=== PATIENT | male | born 1970 | race Caucasian/White ===

== ENCOUNTER → 2020-08-07 | Outpatient (CLI) | payer OTHER ==
[2020-08-07 10:30] LABS: BLOOD UREA NITROGEN 17 MG/DL (7-18); CALCIUM LEVEL 9.4 MG/DL (8.5-10.1); CARBON DIOXIDE LEVEL 31 MEQ/L (21-32); CHLORIDE LEVEL 106 MEQ/L (98-107); CHOLESTEROL LEVEL 247 MG/DL (<200); CHOLESTEROL RISK RATIO 4.574 (<5); CREATININE FOR GFR 0.92 MG/DL (0.70-1.30); GLOMERULAR FILTRATION RATE > 60.0 (>56); GLUCOSE, FASTING 98 MG/DL (70-100); HDL CHOLESTEROL 54 MG/DL (>40); LDL CHOLESTEROL 170 MG/DL (<100); NON-HDL-C 193 MG/DL; POTASSIUM SERUM 4.2 MEQ/L (3.5-5.1); SODIUM LEVEL 142 MEQ/L (136-145); TRIGLYCERIDES LEVEL 116 MG/DL (<150)
== END ==
LOC: M LAB 09:33
PROVIDERS: ATTEND Physician Assistant Medical
DX: E78.2 Mixed hyperlipidemia (principal)

== ENCOUNTER 2020-09-19 18:33 | Inpatient (IN) | payer OTHER ==
[~2020-09-19] VITALS: Ht 182.9 cm; Wt 114.5 kg
[2020-09-19] MEDS ORDERED: DICY10CA13 (18:47)
[2020-09-19] MEDS ORDERED: DICL75TA (18:47)
[2020-09-19] MEDS ORDERED: NS 1,000 ML IV ONE (19:30)
[2020-09-19] MEDS ORDERED: KETOROLAC 30 MG/ML 1ML VIAL IV ONE (19:30)
[2020-09-19 20:02] LABS: BASO # 0.1 10^3/uL (0.0-0.2); BASO % 0.5 % (0.0-1.0); EOS # 0.1 10^3/uL (0.0-0.5); EOS % 0.4 % (0.0-3.0); HEMATOCRIT 44.6 % (42.0-52.0); HEMOGLOBIN 15.1 g/dl (13.5-17.5); LYMPH # 0.9 10^3/uL (1.5-5.0); LYMPH % 7.2 % (24.0-44.0); MEAN CORPUSCULAR HEMOGLOBIN 30.6 pg (27.0-33.0); MEAN CORPUSCULAR HGB CONC 33.9 g/dl (32.0-36.5); MEAN CORPUSCULAR VOLUME 90.5 fl (80.0-96.0); MONO # 1.2 10^3/uL (0.0-0.8); MONO % 9.7 % (2.0-8.0); NEUTROPHILS % 81.3 % (36.0-66.0); PLATELET COUNT, AUTOMATED 377 10^3/uL (150-450); RED BLOOD COUNT 4.93 10^6/uL (4.30-6.10); WHITE BLOOD COUNT 12.3 10^3/uL (4.0-10.0)
[2020-09-19 20:35] LABS: ALBUMIN 3.5 GM/DL (3.2-5.2); ALT/SGPT 216 U/L (12-78); BILIRUBIN,DIRECT 1.8 MG/DL (0.0-0.2); BILIRUBIN,TOTAL 2.9 MG/DL (0.2-1.0); CK-MB VALUE MASS 1.3 NG/ML (<3.6); CPK CREATINE PHOSPHOKINASE 276 U/L (39-308); LIPASE 221 U/L (73-393); MB/CK RELATIVE INDEX 0.47 (< OR =4); TOTAL PROTEIN 7.4 GM/DL (6.4-8.2); TROPONIN I < 0.02 NG/ML (< 0.10)
--- NOTE | 2020-09-19 20:39 | REPVR ---
PROCEDURE INFORMATION: Exam: US Abdomen, Limited; Right Upper Quadrant Exam date and time: 09/19/2020 8:23 PM Age: 50 years old Clinical indication: Abdominal pain; Acute; Additional info: Ruq/flank pain TECHNIQUE: Imaging protocol: US abdomen. Real time ultrasound with image documentation. Limited exam focused on the right upper quadrant. COMPARISON: No relevant prior studies available. FINDINGS: Liver: The liver is diffusely echogenic relative to the right kidney, findings consistent with steatosis. Gallbladder: There is mild thickening of the gallbladder wall associated with pericholecystic fluid. No calculi demonstrated. Positive sonographic Steward sign. Possibility of acalculous versus calculus cholecystitis to be considered. Common bile duct: The common bile duct measures 5 mm. No mass or choledocholithiasis. Pancreas: Visualized pancreas is unremarkable. Right kidney: Right kidney measures 13.7 x 6.3 x 7.5 cm. IMPRESSION: 1. Hepatic steatosis. 2. Possible calculus or acalculous cholecystitis as described above. Electronically signed by: Jaime Bañuelos On 09/19/2020 20:39:18 PM
--- NOTE | 2020-09-19 20:52 | REPVR ---
PROCEDURE INFORMATION: Exam: XR Right Ribs with PA Chest Exam date and time: 09/19/2020 8:44 PM Age: 50 years old Clinical indication: Chest wall pain; Right; Patient HX: Lower rib anteriorly; Additional info: Rib tenderness right TECHNIQUE: Imaging protocol: XR Right ribs with PA chest. Views: 3 views COMPARISON: No relevant prior studies available. FINDINGS: Lungs: Unremarkable. No consolidation. Pleural spaces: Unremarkable. No pleural effusion. No pneumothorax. Heart/Mediastinum: Unremarkable. No cardiomegaly. Bones/joints: Unremarkable. IMPRESSION: No acute findings. Electronically signed by: Jaime Bañuelos On 09/19/2020 20:52:25 PM
[2020-09-19] MEDS ORDERED: PIPERACILLIN/TAZOBACTAM SOD 3.375 GM in D5W MINI-BAG PLUS 50 ML IV ONE (21:15)
[2020-09-19] MEDS ORDERED: ACETAMINOPHEN TAB 650MG DOSE (2X325MG) PO PRN (21:35)
[2020-09-19] MEDS ORDERED: MAALOX 30 ML SUSP *UDC PO PRN (21:35)
[2020-09-19] MEDS ORDERED: MOM 30ML SUSPENSION UDC PO PRN (21:35)
--- NOTE | 2020-09-19 21:37 | HPEPDOC ---
[facility] Medical History & Physical Date of Admission Sep 19, 2020 Date of Service: Sep 19, 2020 History and Physical CHIEF COMPLAINT: RUQ abdominal pain HISTORY OF PRESENT ILLNESS: 50 yo M presented to [facility] ER with a week long history of RUQ pain associated with nausea and vomiting, as well as darkening urine. Patient states he was seen at an urgent care in [place], given Bentyl and diclofenac for stomach pain. He has been having RUQ discomfort on and off for ~3 months, with recent exacebration 1 week ago. He reports that his pain worsening on eating fatty foods. He denies fevers, chills, chest pain, shortness of breath. O n arrival to ER, found to have WBC 12.3. Hgb 15.1. T bili 2.9. D bili 1.8. 245. ALT 216. ALP 354. Lipase 221. Elevated D dimer 3900. Gallbladder US showing findings c/w cholecystitis. MRCP showed normal caliber of intra and extrahepatic biliary tree, no choledocholithiasis, findings suggestive of cholecystitis. Patient will be admitted hospitalist service. Dr. Willis was consulted from ER. Patient started on empiric zosyn. PAST MEDICAL HISTORY: obesity sleep apnea kidney stones hiatal hernia vasectomy L knee arthroscopy SOCIAL HISTORY: Patient denies smoking Patient denies etoh use Patient denies illicit drug use FAMILY HISTORY: Reviewed with patient, did not report relevant family history ALLERGIES: Please see below. REVIEW OF SYSTEMS: 10 point review of systems was conducted, pertinent findings are noted in HPI HOME MEDICATIONS: Please see below. PHYSICAL EXAMINATION: VITAL SIGNS: please see below General: NAD, comfortable HEENT: PERRLA, EOMI, sclerae clear Neck: supple, normal ROM, no JVD Respiratory: lungs CTAB, no wheeze, no rales, no crackles CVS: RRR, normal S1, S2, no murmurs Abdo: soft, no masses, no hepatosplenomegaly, positive Steward sign. Diffuse tenderness to palpation, 7 out of 10 Extremities: no edema, pulses 2+ MSK: no joint deformities, normal ROM Neuro: no focal neuro deficits, moving all 4 extremities, CN2-12 intact. Strength 5/5 in all 4 extremities. No nystagmus. Psych: calm, cooperative, AAO x 3 LABORATORY DATA: See below. IMAGING: MRCP (09/19/20): 1. Diffuse thickening of the gallbladder wall. No gallstones demonstrated. Clinical correlation to exclude cholecystitis suggested. 2. Normal caliber of the intra and extrahepatic biliary tree. No evidence of choledocholithiasis. Gallbladder US (09/19/20): FINDINGS: Liver: The liver is diffusely echogenic relative to the right kidney, findings consistent with steatosis. Gallbladder: There is mild thickening of the gallbladder wall associated with pericholecystic fluid. No calculi demonstrated. Positive sonographic Steward sign. Possibility of acalculous versus calculus cholecystitis to be considered. Common bile duct: The common bile duct measures 5 mm. No mass or choledocholithiasis. Pancreas: Visualized pancreas is unremarkable. Right kidney: Right kidney measures 13.7 x 6.3 x 7.5 cm. IMPRESSION: 1. Hepatic steatosis. 2. Possible calculus or acalculous cholecystitis as described above. Ribs XR (09/19/20): No acute findings. MICROBIOLOGY: Please see below. ASSESSMENT: 50 yo M presenting with a week long hx of RUQ abdominal pain with nausea and vomiting possibly 2/2 acute cholecystitis. . PLAN: RUQ pain possibly 2/2 acute cholecystitis - WBC 12.3, with neutrophil predominance - trend CMP given transaminitis - empiric zosyn in ER. Blood cultures were ordered subsequent to abx. - Gallbladder US showing findings c/w acute cholecystitis - MRCP shows no choledocholithiasis or CBD dilation - General surgery Dr. Willis consulted from ER - possible consideration for ERCP in AM with GI service - patient will be kept NPO overnight - LR at 125 cc/hr for maintenance - zofran for nausea - morphine IV for breakthrough, norco. - bowel regimen Elevated D dimer - suspect in setting of acute cholecystitis - no suspicion for PE/DVT at this time - patient is saturating 96% on RA, is normotensive. Denies cough, SOB, hemoptysis. Obesity - BMI 34.2. - complicating care DVT ppx: lovenox. SCDs. TEDs. Dispo: pending clinical improvement. Vital Signs Vital Signs Date Time Temp Pulse Resp B/P (MAP) Pulse Ox O2 Delivery O2 Flow Rate FiO2 09/19/20 19:00 09/19/20 18:43 98.5 105 22 96 Room Air Laboratory Data Labs 24H Laboratory Tests 2 09/19/20 19:39: Immature Granulocyte % (Auto) 0.9, Neutrophils (%) (Auto) 81.3H, Lymphocytes (%) (Auto) 7.2L, Monocytes (%) (Auto) 9.7H, Eosinophils (%) (Auto) 0.4, Basophils (%) (Auto) 0.5, Neutrophils # (Auto) 10.0H, Lymphocytes # (Auto) 0.9L, Monocytes # (Auto) 1.2H, Eosinophils # (Auto) 0.1, Basophils # (Auto) 0.1, Nucleated Red Blood Cells % (auto) 0.0, D-Dimer, Quantitative 3937.84H, Urine Color JENNIFER, Urine Appearance CLEAR, Urine pH 5.0, Urine Specific [place] 1.024, Urine Protein 1+H, Urine Glucose (UA) NEGATIVE, Urine Ketones NEGATIVE, Urine Blood 1+H, Urine Nitrite NEGATIVE, Urine Bilirubin 1+H, Urine Urobilinogen 4.0H, Urine Leukocyte Esterase NEGATIVE, Urine WBC (Auto) 0, Urine RBC (Auto) 5H, Urine Hyaline Casts (Auto) 0, Urine Bacteria (Auto) NEGATIVE, Urine Squamous Epithelial Cells 0, Urine Mucus (Auto) SMALL, Urine Sperm (Auto) , Total Bilirubin 2.9H, Direct Bilirubin 1.8H, Aspartate Amino Transf (AST/SGOT) 245H, Alanine Aminotransferase (ALT/SGPT) 216H, Alkaline Phosphatase 354H, Total Creatine Kinase 276, Creatine Kinase MB 1.3, Creatine Kinase MB Relative Index 0.47, Troponin I < 0.02, Total Protein 7.4, Albumin 3.5, Albumin/Globulin Ratio 0.9, Lipase 221 09/19/20 19:52: POC Glucose (Misc Panel) 159H, POC Sodium (Misc Panel) 139, POC Potassium (Misc Panel) 3.5, POC Chloride (Misc Panel) 102, POC Total CO2 (Misc Panel) 26.0, POC Blood Urea Nitrogen (Misc Panel 12, POC Ionized Calcium (Misc Panel) 4.6, POC Creatinine (Misc Panel) 0.7, POC Hematocrit (Misc Panel) 46.0 09/19/20 21:26: CBC/BMP Laboratory Tests 09/19/20 19:39 Home Medications Scheduled Amoxicillin/Potassium Clav (Augmentin 875-125 Tablet) 1 Each Tablet, 1 TAB PO BID Lactobacillus Acidophilus (Probiotic) 1 Each Capsule, 1 CAP PO BIDWM Scheduled PRN Diclofenac Sodium (Diclofenac Sodium) 75 Mg Tablet.dr, 75 MG PO BID PRN for PAIN Allergies Coded Allergies: No Known Allergies (Unverified , 09/18/20) A-FIB/CHADSVASC A-FIB History Current/History of A-Fib/PAF?: No Current PO Anticoag Therapy: No EMILIO CORONA MD Sep 19, 2020 21:37
[2020-09-19] MEDS ORDERED: LR 1,000 ML IV SCH (21:40)
[2020-09-19 22:14] LABS: RSV AMPLIFICATION NEGATIVE (NEGATIVE)
[2020-09-19] MEDS ORDERED: DICL75TA PO (22:17)
--- NOTE | 2020-09-19 22:27 | REPVR ---
PROCEDURE INFORMATION: Exam: MR Abdomen Without Contrast, MRCP Exam date and time: 09/19/2020 10:03 PM Age: 50 years old Clinical indication: Other: Elevated liver enzymes/? Cbd stone TECHNIQUE: Imaging protocol: MR of the abdomen without contrast. Exam focused on the bile ducts and pancreatic ducts. 3D MRCP images were acquired and processed without radiologist supervision. COMPARISON: GALLBLADDER US 09/19/2020 8:05 PM FINDINGS: Liver: No mass. Gallbladder and bile ducts: Diffuse thickening of the gallbladder wall. No gallstones demonstrated. Clinical correlation to exclude cholecystitis suggested. Normal caliber of the intra and extrahepatic biliary tree. No evidence of choledocholithiasis. Pancreas: Normal caliber of the pancreatic duct. Intraperitoneal space: No fluid collection. IMPRESSION: 1. Diffuse thickening of the gallbladder wall. No gallstones demonstrated. Clinical correlation to exclude cholecystitis suggested. 2. Normal caliber of the intra and extrahepatic biliary tree. No evidence of choledocholithiasis. Electronically signed by: Jaime Bañuelos On 09/19/2020 22:27:16 PM
[2020-09-20] VITALS: BP 134/92
[2020-09-20] MEDS: PIPERACILLIN/TAZOBACTAM SOD 4.5 GM in D5W MINI-BAG PLUS 50 ML IV SCH ×2 (00:19→06:20)
[2020-09-20] MEDS ORDERED: NORCO, ANEXSIA 5/325MG TABLET (HYDROcodone/ACETAMINOPHEN) PO PRN (00:25)
[2020-09-20] MEDS ORDERED: MORPHINE 2 MG/ML 1ML VIAL (J2270) IV PRN (00:25)
[2020-09-20 06:00] VITALS: BP 121/79
[2020-09-20 06:54] LABS: BASO # 0.1 10^3/uL (0.0-0.2); BASO % 0.9 % (0.0-1.0); EOS # 0.1 10^3/uL (0.0-0.5); EOS % 1.3 % (0.0-3.0); HEMATOCRIT 41.7 % (42.0-52.0); HEMOGLOBIN 14.2 g/dl (13.5-17.5); LYMPH % 21.6 % (24.0-44.0); MEAN CORPUSCULAR HEMOGLOBIN 30.4 pg (27.0-33.0); MEAN CORPUSCULAR HGB CONC 34.1 g/dl (32.0-36.5); MEAN CORPUSCULAR VOLUME 89.3 fl (80.0-96.0); MONO # 1.1 10^3/uL (0.0-0.8); MONO % 12.4 % (2.0-8.0); NEUTROPHILS # 5.6 10^3/uL (1.5-8.5); NEUTROPHILS % 62.2 % (36.0-66.0); PLATELET COUNT, AUTOMATED 314 10^3/uL (150-450); RED BLOOD COUNT 4.67 10^6/uL (4.30-6.10)
[2020-09-20 07:22] LABS: ALBUMIN 3.1 GM/DL (3.2-5.2); ALT/SGPT 258 U/L (12-78); BLOOD UREA NITROGEN 13 MG/DL (7-18); CALCIUM LEVEL 8.7 MG/DL (8.5-10.1); CARBON DIOXIDE LEVEL 28 MEQ/L (21-32); CHLORIDE LEVEL 107 MEQ/L (98-107); CREATININE FOR GFR 0.81 MG/DL (0.70-1.30); GLOMERULAR FILTRATION RATE > 60.0 (>56); GLUCOSE, FASTING 98 MG/DL (70-100); MAGNESIUM LEVEL 2.3 MG/DL (1.8-2.4); POTASSIUM SERUM 3.4 MEQ/L (3.5-5.1); SODIUM LEVEL 142 MEQ/L (136-145); TOTAL PROTEIN 6.4 GM/DL (6.4-8.2)
[2020-09-20] MEDS ORDERED: KCL 10MEQ/100ML SWI (KRUN) 10 MEQ in IV 1 EA IV SCH (08:00)
[2020-09-20] MEDS ORDERED: POTASSIUM CHLORIDE 10 MEQ SR TABLET PO ONE (08:05)
[2020-09-20] MEDS ORDERED: AUGM875T28 PO (08:08)
[2020-09-20] MEDS ORDERED: PROBCAP14 PO (08:08)
[2020-09-20] MEDS ORDERED: ENOXAPARIN 40MG/0.4ML SYRINGE (J1650 PER 10MG) SC SCH (09:00)
[2020-09-20] MEDS ORDERED: DOCUSATE SODIUM 100MG CAPSULE PO SCH (09:00)
--- NOTE | 2020-09-20 14:07 | CR.PDOC ---
General Date of Consultation: Sep 20, [address] Willis HISTORY OF PRESENT ILLNESS: The patient is a 50-year-old male who presented to [facility] ER 09/19/20 with a weeklong history of right upper quadrant pain associated with nausea and vomiting. He states he has been having right upper quadrant discomfort on and off for about 3 months. In retrospect he does associated with eating fatty foods such as hamburgers or fast food. Gallbladder ultrasound in the emergency department indicating mild thickening of the gall bladder wall associated with. Cholecystic fluid. No calculi. Positive Steward's sign. Common bile duct 5 mm. MRCP was also done which showed diffuse thickening of the gallbladder wall, no gallstones, normal caliber of intra and extrahepatic biliary tree, no choledocholithiasis. Gen. surgery was consulted for additional recommendations. ALLERGIES: Please see below. HOME MEDICATIONS: Please see below. PMH/PSH obesity BMI 34.2 sleep apnea kidney stones hiatal hernia vasectomy L knee arthroscopy FAMILY HISTORY: Noncontributory SOCIAL HISTORY: Nonsmoker Denies alcohol use. REVIEW OF SYSTEMS: As noted in HPI otherwise 10 point review of systems unremarkable. PHYSICAL EXAMINATION: Afebrile, VSS. GENERAL APPEARANCE: NAD, sitting up in bed. HEENT: MMM RESPIRATORY: CTA CARDIOVASCULAR: S1S2 RRR ABDOMEN: Soft, nondistended, nontender this morning. The patient reports some mild soreness in the right upper quadrant but states this is much improved compared with yesterday. EXTREMITIES: No edema NEUROLOGICAL: Focal deficits WBC 9.0 this morning, leukocytosis resolved. Hemoglobin 14.2 platelets 314 Total bilirubin 4.0, AST 241, ALT 258, alkaline phosphatase 329. ASSESSMENT/PLAN: Acute cholecystitis The patient is reviewed and examined as per Dr. Willis this morning. Patient reports his pain is much improved today. The patient was advanced to low-fat low-cholesterol diet. Dr. Willis relayed to the hospitalist that the patient was stable for discharge from a surgical standpoint. Would recommend to continue with oral antibiotics as outpatient with plan for followup in the office with Dr. Willis to arrange elective cholecystectomy as outpatient. Patient verbalizes understanding and agreement. He states he is feeling much better and feels ready for discharge. Patient is advised to call back to the office with any changes or concerns. Vital Signs/I&O Vital Signs Date Time Temp Pulse Resp B/P (MAP) Pulse Ox O2 Delivery O2 Flow Rate FiO2 09/20/20 06:00 98.7 81 20 121/79 (93) 94 Room Air I&O- Last 24 Hours up to 6 AM 09/20/20 06:00 Intake Total 1160 ml Output Total 200 ml Balance 960 ml Laboratory Data Labs 24H Laboratory Tests 2 09/19/20 19:39: Immature Granulocyte % (Auto) 0.9, Neutrophils (%) (Auto) 81.3H, Lymphocytes (%) (Auto) 7.2L, Monocytes (%) (Auto) 9.7H, Eosinophils (%) (Auto) 0.4, Basophils (%) (Auto) 0.5, Neutrophils # (Auto) 10.0H, Lymphocytes # (Auto) 0.9L, Monocytes # (Auto) 1.2H, Eosinophils # (Auto) 0.1, Basophils # (Auto) 0.1, Nucleated Red Blood Cells % (auto) 0.0, D-Dimer, Quantitative 3937.84H, Urine Color JENNIFER, Urine Appearance CLEAR, Urine pH 5.0, Urine Specific [place] 1.024, Urine Protein 1+H, Urine Glucose (UA) NEGATIVE, Urine Ketones NEGATIVE, Urine Blood 1+H, Urine Nitrite NEGATIVE, Urine Bilirubin 1+H, Urine Urobilinogen 4.0H, Urine Leukocyte Esterase NEGATIVE, Urine WBC (Auto) 0, Urine RBC (Auto) 5H, Urine Hyaline Casts (Auto) 0, Urine Bacteria (Auto) NEGATIVE, Urine Squamous Epit helial Cells 0, Urine Mucus (Auto) SMALL, Urine Sperm (Auto) , Total Bilirubin 2.9H, Direct Bilirubin 1.8H, Aspartate Amino Transf (AST/SGOT) 245H, Alanine Aminotransferase (ALT/SGPT) 216H, Alkaline Phosphatase 354H, Total Creatine Kinase 276, Creatine Kinase MB 1.3, Creatine Kinase MB Relative Index 0.47, Troponin I < 0.02, Total Protein 7.4, Albumin 3.5, Albumin/Globulin Ratio 0.9, Lipase 221 09/19/20 19:52: POC Glucose (Misc Panel) 159H, POC Sodium (Misc Panel) 139, POC Potassium (Misc Panel) 3.5, POC Chloride (Misc Panel) 102, POC Total CO2 (Misc Panel) 26.0, POC Blood Urea Nitrogen (Misc Panel 12, POC Ionized Calcium (Misc Panel) 4.6, POC Creatinine (Misc Panel) 0.7, POC Hematocrit (Misc Panel) 46.0 09/19/20 21:26: Coronavirus (COVID-19)(PCR) NEGATIVE, Influenza Type A (RT-PCR) NEGATIVE, Influenza Type B (RT-PCR) NEGATIVE, Respiratory Syncytial Virus (PCR) NEGATIVE 09/20/20 06:30: Immature Granulocyte % (Auto) 1.6, Neutrophils (%) (Auto) 62.2, Lymphocytes (%) (Auto) 21.6L, Monocytes (%) (Auto) 12.4H, Eosinophils (%) (Auto) 1.3, Basophils (%) (Auto) 0.9, Neutrophils # (Auto) 5.6, Lymphocytes # (Auto) 2.0, Monocytes # (Auto) 1.1H, Eosinophils # (Auto) 0.1, Basophils # (Auto) 0.1, Nucleated Red Blood Cells % (auto) 0.0, Total Bilirubin 4.0H, Aspartate Amino Transf (AST/SGOT) 241H, Alanine Aminotransferase (ALT/SGPT) 258H, Alkaline Phosphatase 329H, Total Protein 6.4, Albumin 3.1L, Albumin/Globulin Ratio 0.9, Anion Gap 7L, Glomerular Filtration Rate > 60.0, Calcium Level 8.7, Magnesium Level 2.3 CBC/BMP Laboratory Tests 09/19/20 19:39 09/20/20 06:30 Microbiology Microbiology 09/20/20 Blood Culture, Received Pending 09/20/20 Blood Culture, Received Pending Allergies Coded Allergies: No Known Allergies (Unverified , 09/18/20) Home Medications Scheduled Amoxicillin/Potassium Clav (Augmentin 875-125 Tablet) 1 Each Tablet, 1 TAB PO BID for 7 Days, #14 Lactobacillus Acidophilus (Probiotic) 1 Each Capsule, 1 CAP PO BIDWM for 10 Days, #20 Scheduled PRN Diclofenac Sodium (Diclofenac Sodium) 75 Mg Tablet., 75 MG PO BID PRN for PAIN, (Reported) Tanvi May Sep 20, 2020 14:07
--- NOTE | 2020-09-20 16:17 | DS.PDOC ---
Discharge Summary General Date of Admission Sep 19, 2020 at 21:32 Date of Discharge 09/20/20 Attending Physician: Jackelin Thornton MD Discharge Summary HISTORY OF PRESENT ILLNESS: 50 yo M presented to [facility] ER with a week long history of RUQ pain associated with nausea and vomiting, as well as darkening urine. Patient states he was seen at an urgent care in [place], given Bentyl and diclofenac for stomach pain. He has been having RUQ discomfort on and off for ~3 months, with recent exacebration 1 week ago. He reports that his pain worsening on eating fatty foods. He denies fevers, chills, chest pain, shortness of breath. On arrival to ER, found to have WBC 12.3. Hgb 15.1. T bili 2.9. D bili 1.8. 245. ALT 216. ALP 354. Lipase 221. Elevated D dimer 3900. Gallbladder US showing findings c/w cholecystitis. MRCP showed normal caliber of intra and extrahepatic biliary tree, no adelaida docholithiasis, findings suggestive of cholecystitis. Patient will be admitted hospitalist service. Dr. Willis was consulted from ER. Patient started on empiric zosyn. HOSPITAL COURSE: Overnight, there were no acute events. Patient's pain had resolved by 09/20/20 in the AM. WBC wnl, afebrile. Patient had persistent elevated bilirubin and surgery was contacted. Per Dr. Willis, with neg MRI abd, no need for ERCP or GI consult. Patient could be discharged to follow up with their surgical clinic where they would monitor LFTs, bili as o/p per surgeon. He will be discharged with 7 days of augmentin and information on appropriate diet for cholecystitis. Potassium was replaced prior to discharge. PAST MEDICAL HISTORY: obesity sleep apnea kidney stones hiatal hernia vasectomy L knee arthroscopy SOCIAL HISTORY: Patient denies smoking Patient denies etoh use Patient denies illicit drug use FAMILY HISTORY: Reviewed with patient, did not report relevant family history ALLERGIES: Please see below. DISCHARGE MEDICATIONS: Please see below. PHYSICAL EXAMINATION: VITAL SIGNS: please see below General: NAD, comfortable HEENT: PERRLA, EOMI, sclerae clear Neck: supple, normal ROM, no JVD Respiratory: lungs CTAB, no wheeze, no rales, no crackles CVS: RRR, normal S1, S2, no murmurs Abdo: soft, no masses, no hepatosplenomegaly. NONTENDER, BS+ in 4 quadrants Extremities: no edema, pulses 2+ MSK: no joint deformities, normal ROM Neuro: no focal neuro deficits, moving all 4 extremities, CN2-12 intact. Strength 5/5 in all 4 extremities. No nystagmus. Psych: calm, cooperative, AAO x 3 LABORATORY DATA: See below. IMAGING: MRCP (09/19/20): 1. Diffuse thickening of the gallbladder wall. No gallstones demonstrated. Clinical correlation to exclude cholecystitis suggested. 2. Normal caliber of the intra and extrahepatic biliary tree. No evidence of choledocholithiasis. Gallbladder US (09/19/20): FINDINGS: Liver: The liver is diffusely echogenic relative to the right kidney, findings consistent with steatosis. Gallbladder: There is mild thickening of the gallbladder wall associated with pericholecystic fluid. No calculi demonstrated. Positive sonographic Steward sign. Possibility of acalculous versus calculus cholecystitis to be considered. Common bile duct: The common bile duct measures 5 mm. No mass or choledocholithiasis. Pancreas: Visualized pancreas is unremarkable. Right kidney: Right kidney measures 13.7 x 6.3 x 7.5 cm. IMPRESSION: 1. Hepatic steatosis. 2. Possible calculus or acalculous cholecystitis as described above. Ribs XR (09/19/20): No acute findings. MICROBIOLOGY: Please see below. ASSESSMENT: 50 yo M presenting with a week long hx of RUQ abdominal pain with nausea and vomiting 2/2 acute cholecystitis. PLAN: RUQ pain 2/2 acute cholecystitis -WBC wnl, afebrile, nontender abdomen. -AST/ALT and bili remain elevated trend CMP given transaminitis -Per Dr. Willis, patient can be discharged home to follow up closely with surgical clinic -Patient will be given specific diet instructions, encouraged to drink at least 120 ounces of water daily -D/edy with augmentin PO x 7 days. if pain, fevers, abdominal pain, incr n/v occur, he is to report symptoms immediately to a medical provider. Obesity - BMI 34.2. - complicating care -F/u with PCP DISPOSITION: D/c home today with close follow up with general surgery service. TIME SPENT ON DISCHARGE: 35 minutes. Vital Signs/I&Os Vital Signs Date Time Temp Pulse Resp B/P (MAP) Pulse Ox O2 Delivery O2 Flow Rate FiO2 09/20/20 06:00 98.7 81 20 121/79 (93) 94 Room Air I&O- Last 24 Hours up to 6 AM 09/20/20 06:00 Intake Total 1160 ml Output Total 200 ml Balance 960 ml Laboratory Data Labs 24H Laboratory Tests 2 09/19/20 19:39: Immature Granulocyte % (Auto) 0.9, Neutrophils (%) (Auto) 81.3H, Lymphocytes (%) (Auto) 7.2L, Monocytes (%) (Auto) 9.7H, Eosinophils (%) (Auto) 0.4, Basophils (%) (Auto) 0.5, Neutrophils # (Auto) 10.0H, Lymphocytes # (Auto) 0.9L, Monocytes # (Auto) 1.2H, Eosinophils # (Auto) 0.1, Basophils # (Auto) 0.1, Nucleated Red Blood Cells % (auto) 0.0, D-Dimer, Quantitative 3937.84H, Urine Color JENNIFER, Urine Appearance CLEAR, Urine pH 5.0, Urine Specific [place] 1.024, Urine Protein 1+H, Urine Glucose (UA) NEGATIVE, Urine Ketones NEGATIVE, Urine Blood 1+H, Urine Nitrite NEGATIVE, Urine Bilirubin 1+H, Urine Urobilinogen 4.0H, Urine Leukocyte Esterase NEGATIVE, Urine WBC (Auto) 0, Urine RBC (Auto) 5H, Urine Hyaline Casts (Auto) 0, Urine Bacteria (Auto) NEGATIVE, Urine Squamous Epithelial Cells 0, Urine Mucus (Auto) SMALL, Urine Sperm (Auto) , Total Bilirubin 2.9H, Direct Bilirubin 1.8H, Aspartate Amino Transf (AST/SGOT) 245H, Alanine Aminotransferase (ALT/SGPT) 216H, Alkaline Phosphatase 354H, Total Creatine Kinase 276, Creatine Kinase MB 1.3, Creatine Kinase MB Relative Index 0.47, Troponin I < 0.02, Total Protein 7.4, Albumin 3.5, Albumin/Globulin Ratio 0.9, Lipase 221 09/19/20 19:52: POC Glucose (Misc Panel) 159H, POC Sodium (Misc Panel) 139, POC Potassium (Misc Panel) 3.5, POC Chloride (Misc Panel) 102, POC Total CO2 (Misc Panel) 26.0, POC Blood Urea Nitrogen (Misc Panel 12, POC Ionized Calcium (Misc Panel) 4.6, POC Creatinine (Misc Panel) 0.7, POC Hematocrit (Misc Panel) 46.0 09/19/20 21:26: Coronavirus (COVID-19)(PCR) NEGATIVE, Influenza Type A (RT-PCR) NEGATIVE, Influenza Type B (RT-PCR) NEGATIVE, Respiratory Syncytial Virus (PCR) NEGATIVE 09/20/20 06:30: Immature Granulocyte % (Auto) 1.6, Neutrophils (%) (Auto) 62.2, Lymphocytes (%) (Auto) 21.6L, Monocytes (%) (Auto) 12.4H, Eosinophils (%) (Auto) 1.3, Basophils (%) (Auto) 0.9, Neutrophils # (Auto) 5.6, Lymphocytes # (Auto) 2.0, Monocytes # (Auto) 1.1H, Eosinophils # (Auto) 0.1, Basophils # (Auto) 0.1, Nucleated Red Blood Cells % (auto) 0.0, Total Bilirubin 4.0H, Aspartate Amino Transf (AST/SGOT) 241H, Alanine Aminotransferase (ALT/SGPT) 258H, Alkaline Phosphatase 329H, Total Protein 6.4, Albumin 3.1L, Albumin/Globulin Ratio 0.9, Anion Gap 7L, Glomerular Filtration Rate > 60.0, Calcium Level 8.7, Magnesium Level 2.3 CBC/BMP Laboratory Tests 09/19/20 19:39 09/20/20 06:30 Microbiology Microbiology 09/20/20 Blood Culture, Received Pending 09/20/20 Blood Culture, Received Pending Discharge Medications Scheduled Amoxicillin/Potassium Clav (Augmentin 875-125 Tablet) 1 Each Tablet, 1 TAB PO BID Lactobacillus Acidophilus (Probiotic) 1 Each Capsule, 1 CAP PO BIDWM Scheduled PRN Diclofenac Sodium (Diclofenac Sodium) 75 Mg Tablet.dr, 75 MG PO BID PRN for PAIN, (Reported) Allergies Coded Allergies: No Known Allergies (Unverified , 09/18/20) Current Medications Current Medications Medications (Trade) Dose Ordered Sig/[place] Route PRN Reason Start Time Stop Time Status Last Admin Dose Admin Acetaminophen (Tylenol Tab) 650 mg Q4H PRN PO PAIN OR FEVER 09/19/20 21:35 09/20/20 10:02 DC Acetaminophen/ Hydrocodone Bitart ([place], Anexsia 5/325) 1 tab Q6HP PRN PO MILD/MODERATE PAIN (PS 1-7) 09/20/20 00:25 09/20/20 10:02 DC 09/20/20 00:47 Al Hydrox/Mg Hydrox/Simethicone (Mylanta) 30 ml DAILY PRN PO DYSPEPSIA 09/19/20 21:35 09/20/20 10:02 DC 09/19/20 22:34 Docusate Sodium (Colace) 100 mg BID PO 09/20/20 09:00 09/20/20 10:02 DC 09/20/20 09:46 Enoxaparin Sodium (Lovenox) 40 mg DAILY SC 09/20/20 09:00 09/20/20 10:02 DC 09/20/20 09:46 Home Med (Med Rec Complete!) ASDIRECTED XX 09/19/20 22:20 09/19/20 22:19 DC Lactated Ringer's 1,000 ml @ 125 mls/hr Q8H IV 09/19/20 21:40 09/20/20 10:02 DC 09/19/20 22:23 Magnesium Hydroxide (Milk Of Magnesia) 30 ml DAILY PRN PO CONSTIPATION 09/19/20 21:35 09/20/20 10:02 DC Morphine Sulfate (Morphine Sulfate Inj) 2 mg Q4H PRN IV MODERATE BREAKTHROUGH PAIN 09/20/20 00:25 09/20/20 10:02 DC Piperacillin Sod/ Tazobactam Sod 4.5 gm/Dextrose 50 ml @ 50 mls/hr Q6H IV 09/20/20 01:00 09/20/20 10:02 DC 09/20/20 06:20 Potassium Chloride 10 meq/ IV Miscellaneous Supplies 100 ml @ 100 mls/hr Q1H IV 09/20/20 08:00 09/20/20 08:07 Jackelin Friedman MD Sep 20, 2020 16:17
== END 2020-09-20 10:00 | disposition home or self-care (01) | DRG 446 ==
LOC: M ED 18:33 → M ED INP 21:32 → ENRESERV 23:21 → M MS5PR 09-20
PROVIDERS: ADMIT Family Medicine; ATTEND Internal Medicine
DX: K81.0 Acute cholecystitis (principal); E66.9 Obesity, unspecified; Z68.34 Body mass index [BMI] 34.0-34.9, adult; R79.89 Other specified abnormal findings of blood chemistry; Z79.899 Other long term (current) drug therapy; R11.2 Nausea with vomiting, unspecified; Z20.822 Contact with and (suspected) exposure to COVID-19

== ENCOUNTER 2020-09-28 07:42 | Day surgery (SDC) | payer OTHER ==
[~2020-09-28] VITALS: Ht 182.9 cm; Wt 111.6 kg
[~2020-09-28 07:42] MED LIST: AUGM875T28 PO; DICL75TA; DICL75TA PO; DICY10CA13; LIDOCAINE 2% 100MG/5ML SDV (FOR ANES.) As Ordered ONE; NS 1,000 ML IV ONE; PROBCAP14 PO; propofoL 200 MG/20 ML VIAL As Ordered ONE
--- NOTE | 2020-09-28 09:12 | ROOR ---
Patient Name: Chava Obregon Procedure Date: 09/28/2020 8:44 AM Date of : 1970 Age: 50 Room: [facility] Gender: Male Note Status: Finalized Procedure: Colonoscopy Indications: Screening for colorectal malignant neoplasm Providers: Helder Farley Jr, MD Referring MD: Juany Alonzo MD Requesting Provider: Medicines: Propofol per Anesthesia Complications: No immediate complications. Procedure: Pre-Anesthesia Assessment: - Prior to the procedure, a History and Physical was performed, and patient medications and allergies were reviewed. The patient is competent. The risks and benefits of the procedure and the sedation options and risks were discussed with the patient. All questions were answered and informed consent was obtained. Patient identification and proposed procedure were verified by the physician and the nurse in the pre-procedure area and in the procedure room. Mental Status Examination: alert and oriented. Airway Examination: normal oropharyngeal airway and neck mobility. Respiratory Examination: clear to auscultation. CV Examination: normal. ASA Grade Assessment: II - A patient with mild systemic disease. After reviewing the risks and benefits, the patient was deemed in satisfactory condition to undergo the procedure. The anesthesia plan was to use moderate sedation / analgesia (conscious sedation). Immediately prior to administration of medications, the patient was re-assessed for adequacy to receive sedatives. The heart rate, respiratory rate, oxygen saturations, blood pressure, adequacy of pulmonary ventilation, and response to care were monitored throughout the procedure. The physical status of the patient was re-assessed after the procedure. The Colonoscope was introduced through the anus and advanced to the cecum, identified by appendiceal orifice and ileocecal valve. The colonoscopy was performed without difficulty. The quality of the bowel preparation was adequate. Findings: A medium polyp was found in the appendiceal orifice. The polyp was semi-pedunculated. The polyp was removed with a hot snare. Resection and retrieval were complete. Multiple medium-mouthed diverticula were found in the sigmoid colon. Non-bleeding external and internal hemorrhoids were found during endoscopy. The hemorrhoids were medium-sized. The rectum, recto-sigmoid colon, descending colon, transverse colon, ascending colon and cecum appeared normal. Impression: - One medium polyp at the appendiceal orifice, removed with a hot snare. Resected and retrieved. - Diverticulosis in the sigmoid colon. - Non-bleeding external and internal hemorrhoids. - The rectum, recto-sigmoid colon, descending colon, transverse colon, ascending colon and cecum are normal. Recommendation: - Discharge patient to home (ambulatory). - Repeat colonoscopy in 3 years for surveillance. Procedure Code(s): --- Professional --- 72988, Colonoscopy, flexible; with removal of tumor(s), polyp(s), or other lesion(s) by snare technique Diagnosis Code(s): --- Professional --- Z12.11, Encounter for screening for malignant neoplasm of colon K63.5, Polyp of colon K64.8, Other hemorrhoids K57.30, Diverticulosis of large intestine without perforation or abscess without bleeding CPT copyright 2019 [employer]. All rights reserved. The codes documented in this report are preliminary and upon cost estimator review may be revised to meet current compliance requirements. Helder Farley MD Helder Farley Jr, MD 09/28/2020 9:12:02 AM Electronically signed by Helder Farley Jr, MD Number of Addenda: 0 Note Initiated On: 09/28/2020 8:44 AM Estimated Blood Loss: Estimated blood loss: none.
[2020-09-28 09:35] VITALS: BP 144/67
== END 2020-09-28 09:50 | disposition home or self-care (01) ==
LOC: M OPP 07:42
PROVIDERS: ATTEND Surgery
DX: Z12.11 Encounter for screening for malignant neoplasm of colon (principal); D12.6 Benign neoplasm of colon, unspecified; K64.8 Other hemorrhoids; K57.30 Diverticulosis of large intestine without perforation or abscess without bleeding; G47.30 Sleep apnea, unspecified

== ENCOUNTER → 2020-10-14 | Outpatient (CLI) | payer OTHER ==
[~2020-10-14] MED LIST changes: -LIDOCAINE 2% 100MG/5ML SDV (FOR ANES.) As Ordered ONE; -NS 1,000 ML IV ONE; -propofoL 200 MG/20 ML VIAL As Ordered ONE
== END ==
LOC: M LABSMTC 09:30
PROVIDERS: ATTEND Anesthesiology
DX: Z01.812 Encounter for preprocedural laboratory examination (principal)

== ENCOUNTER → 2021-08-17 | Outpatient (CLI) | payer OTHER ==
[2021-08-17 12:44] LABS: ALBUMIN 4.2 GM/DL (3.2-5.2); ALT/SGPT 69 U/L (12-78); BILIRUBIN,TOTAL 1.7 MG/DL (0.2-1.0); BLOOD UREA NITROGEN 15 MG/DL (7-18); CALCIUM LEVEL 9.5 MG/DL (8.5-10.1); CARBON DIOXIDE LEVEL 28 MEQ/L (21-32); CHLORIDE LEVEL 106 MEQ/L (98-107); CHOLESTEROL LEVEL 240 MG/DL (<200); CHOLESTEROL RISK RATIO 4.285 (<5); CREATININE FOR GFR 0.92 MG/DL (0.70-1.30); GLOMERULAR FILTRATION RATE > 60.0 (>56); GLUCOSE, FASTING 94 MG/DL (70-100); HDL CHOLESTEROL 56 MG/DL (>40); LDL CHOLESTEROL 155 MG/DL (<100); NON-HDL-C 184 MG/DL; POTASSIUM SERUM 3.9 MEQ/L (3.5-5.1); SODIUM LEVEL 138 MEQ/L (136-145); TOTAL PROTEIN 7.7 GM/DL (6.4-8.2); TRIGLYCERIDES LEVEL 143 MG/DL (<150)
== END ==
LOC: M LAB 11:33
PROVIDERS: ATTEND Nurse Practitioner Family
DX: E78.2 Mixed hyperlipidemia (principal)

== ENCOUNTER → 2021-12-06 | Outpatient (REF) | payer OTHER | LOC: M LAB REF 08:13 | PROVIDERS: ATTEND Surgery | DX: L72.0 Epidermal cyst (principal) ==

== ENCOUNTER → 2022-04-19 | Outpatient (CLI) | payer OTHER ==
[2022-04-19 14:51] LABS: BASO # 0.1 10^3/uL (0.0-0.2); BASO % 0.9 % (0.0-1.0); EOS # 0.2 10^3/uL (0.0-0.5); HEMATOCRIT 45.5 % (42.0-52.0); HEMOGLOBIN 15.7 g/dl (13.5-17.5); LYMPH # 2.2 10^3/uL (1.5-5.0); LYMPH % 29.2 % (24.0-44.0); MEAN CORPUSCULAR HEMOGLOBIN 30.3 pg (27.0-33.0); MEAN CORPUSCULAR HGB CONC 34.5 g/dl (32.0-36.5); MEAN CORPUSCULAR VOLUME 87.8 fl (80.0-96.0); MONO # 0.8 10^3/uL (0.0-0.8); MONO % 10.5 % (2.0-8.0); NEUTROPHILS # 4.2 10^3/uL (1.5-8.5); NEUTROPHILS % 55.7 % (36.0-66.0); PLATELET COUNT, AUTOMATED 244 10^3/uL (150-450); RED BLOOD COUNT 5.18 10^6/uL (4.30-6.10); WHITE BLOOD COUNT 7.6 10^3/uL (4.0-10.0)
[2022-04-19 15:28] LABS: BLOOD UREA NITROGEN 12 MG/DL (7-18); CALCIUM LEVEL 9.2 MG/DL (8.5-10.1); CARBON DIOXIDE LEVEL 26 MEQ/L (21-32); CHLORIDE LEVEL 106 MEQ/L (98-107); CREATININE FOR GFR 0.81 MG/DL (0.70-1.30); GLOMERULAR FILTRATION RATE > 60.0 (>56); GLUCOSE, FASTING 93 MG/DL (70-100); POTASSIUM SERUM 3.5 MEQ/L (3.5-5.1); SODIUM LEVEL 138 MEQ/L (136-145)
== END ==
LOC: M LAB 13:22
PROVIDERS: ATTEND Nurse Practitioner Family
DX: Z01.818 Encounter for other preprocedural examination (principal); L91.8 Other hypertrophic disorders of the skin; L72.3 Sebaceous cyst

== ENCOUNTER → 2022-04-21 | Outpatient (CLI) | payer OTHER | LOC: M LABSMTC 09:32 | PROVIDERS: ATTEND Anesthesiology | DX: Z01.812 Encounter for preprocedural laboratory examination (principal); Z20.822 Contact with and (suspected) exposure to COVID-19 ==

== ENCOUNTER 2022-04-25 06:26 | Day surgery (SDC) | payer OTHER ==
[~2022-04-25] VITALS: Ht 182.9 cm; Wt 122.0 kg
[2022-04-25] MEDS ORDERED: ceFAZolin SOD 2 GM in IV 1 EA IV ONE (06:30)
[2022-04-25] MEDS ORDERED: LR 1,000 ML IV SCH (06:50)
[2022-04-25] MEDS ORDERED: LIDOCAINE 2% 100MG/5ML SDV (FOR ANES.) As Ordered ONE (07:24)
[2022-04-25] MEDS ORDERED: propofoL 200 MG/20 ML VIAL As Ordered ONE (07:24)
[2022-04-25] MEDS ORDERED: ONDANSETRON 4MG 2ML VIAL As Ordered ONE (07:24)
[2022-04-25] MEDS ORDERED: MIDAZOLAM INJ 2MG/2ML VIAL (J2250 PER 1MG) As Ordered ONE (07:25)
[2022-04-25] MEDS ORDERED: fentaNYL 100 MCG/2 ML INJECTION As Ordered ONE (07:26)
[2022-04-25] MEDS ORDERED: LIDOCAINE W/EPINEPHRINE 1% 20ML VIAL As Ordered ONE (07:53)
[2022-04-25] MEDS ORDERED: ACETAMINOPHEN 1000MG 100ML IV BTL (OFIRMEV) (J0131 PER 10MG) As Ordered ONE (08:23)
[2022-04-25] MEDS ORDERED: BACITRACIN OINTMENT 30GM TUBE As Ordered ONE (08:41)
[2022-04-25 08:51] VITALS: BP 136/80
== END 2022-04-25 09:30 | disposition home or self-care (01) ==
LOC: M SDC 06:26
PROVIDERS: ATTEND Plastic Surgery Surgery of the Hand
DX: L72.3 Sebaceous cyst (principal); K44.9 Diaphragmatic hernia without obstruction or gangrene; G47.30 Sleep apnea, unspecified
CPT/HCPCS: 11440; 11441; 88305; J0131; J0690; J2250; J2405; J3010

== ENCOUNTER → 2022-08-06 | Outpatient (REF) | payer OTHER | LOC: M SFHCDERM 12:33 | PROVIDERS: ATTEND Nurse Practitioner Family | DX: L82.1 Other seborrheic keratosis (principal) ==

== ENCOUNTER → 2022-08-16 | Outpatient (CLI) | payer OTHER | LOC: M PLALAB 07:50 | PROVIDERS: ATTEND Nurse Practitioner Family | DX: R05.9 Cough, unspecified (principal) ==

== ENCOUNTER → 2022-09-09 | Outpatient (CLI) | payer OTHER ==
[2022-09-09 16:23] LABS: ALBUMIN 3.8 G/DL (3.2-5.2); ALKALINE PHOSPHATASE 86 U/L (46-116); ALT/SGPT 61 U/L (7.0-40); AST/SGOT 33 U/L (<34); BILIRUBIN,TOTAL 1.7 MG/DL (0.3-1.2); BLOOD UREA NITROGEN 11 MG/DL (9-23); CALCIUM LEVEL 9.1 MG/DL (8.5-10.1); CARBON DIOXIDE LEVEL 27 MMOL/L (20-31); CHLORIDE LEVEL 106 MMOL/L (98-107); CHOLESTEROL LEVEL 228 MG/DL (<200); CHOLESTEROL RISK RATIO 4.88 (<5); CREATININE FOR GFR 0.77 MG/DL (0.70-1.30); GLOMERULAR FILTRATION RATE > 60.0 (>56); GLUCOSE, FASTING 104 MG/DL (60-100); HDL CHOLESTEROL 46.7 MG/DL (>40); LDL CHOLESTEROL 137.3 MG/DL (<100); NON-HDL-C 181.3 MG/DL; POTASSIUM SERUM 3.7 MMOL/L (3.5-5.1); SODIUM LEVEL 141 MMOL/L (136-145); TOTAL PROTEIN 6.8 G/DL (5.7-8.2); TRIGLYCERIDES LEVEL 220 MG/DL (<150)
== END ==
LOC: M LAB 15:14
PROVIDERS: ATTEND Nurse Practitioner Family
DX: E78.2 Mixed hyperlipidemia (principal)

== ENCOUNTER → 2022-10-07 | Outpatient (CLI) | payer OTHER ==
[2022-10-07 16:41] LABS: BASO # 0.1 10^3/uL (0.0-0.2); BASO % 0.3 % (0.0-1.0); EOS # 0.1 10^3/uL (0.0-0.5); EOS % 0.6 % (0.0-3.0); HEMATOCRIT 46.7 % (42.0-52.0); LYMPH # 1.5 10^3/uL (1.5-5.0); LYMPH % 9.2 % (24.0-44.0); MEAN CORPUSCULAR HEMOGLOBIN 30.4 pg (27.0-33.0); MEAN CORPUSCULAR HGB CONC 34.3 g/dl (32.0-36.5); MEAN CORPUSCULAR VOLUME 88.6 fl (80.0-96.0); MONO % 10.6 % (2.0-8.0); NEUTROPHILS # 12.7 10^3/uL (1.5-8.5); NEUTROPHILS % 78.8 % (36.0-66.0); PLATELET COUNT, AUTOMATED 259 10^3/uL (150-450); RED BLOOD COUNT 5.27 10^6/uL (4.30-6.10); WHITE BLOOD COUNT 16.1 10^3/uL (4.0-10.0)
[2022-10-07 17:12] LABS: MONO # 1.7 10^3/uL (0.0-0.8)
[2022-10-07 17:22] LABS: ALBUMIN 4.1 G/DL (3.2-5.2); ALKALINE PHOSPHATASE 97 U/L (46-116); ALT/SGPT 43 U/L (7.0-40); AST/SGOT 25 U/L (<34); BILIRUBIN,TOTAL 2.2 MG/DL (0.3-1.2); BLOOD UREA NITROGEN 8 MG/DL (9-23); CALCIUM LEVEL 8.7 MG/DL (8.5-10.1); CARBON DIOXIDE LEVEL 26 MMOL/L (20-31); CHLORIDE LEVEL 106 MMOL/L (98-107); CREATININE FOR GFR 0.78 MG/DL (0.70-1.30); GLOMERULAR FILTRATION RATE > 60.0 (>56); GLUCOSE, FASTING 113 MG/DL (60-100); POTASSIUM SERUM 3.5 MMOL/L (3.5-5.1); SODIUM LEVEL 139 MMOL/L (136-145)
== END ==
LOC: M PLALAB 11:26
PROVIDERS: ATTEND Registered Nurse
DX: R19.7 Diarrhea, unspecified (principal)

== ENCOUNTER → 2023-01-29 | Outpatient (CLI) | payer OTHER ==
[~2023-01-29] MED LIST changes: +DICY-61; -DICY10CA13
== END ==
LOC: M SLEEP 20:00
PROVIDERS: ATTEND Nurse Practitioner Adult Health
DX: G47.33 Obstructive sleep apnea (adult) (pediatric) (principal)

== ENCOUNTER → 2023-09-12 | Outpatient (CLI) | payer OTHER ==
[2023-09-12 11:45] LABS: ALBUMIN 4.3 G/DL (3.2-5.2); ALKALINE PHOSPHATASE 96 U/L (46-116); ALT/SGPT 48 U/L (7.0-40); AST/SGOT 23 U/L (<34); BILIRUBIN,TOTAL 1.7 MG/DL (0.3-1.2); BLOOD UREA NITROGEN 17 MG/DL (9-23); CALCIUM LEVEL 9.4 MG/DL (8.5-10.1); CARBON DIOXIDE LEVEL 29 MMOL/L (20-31); CHLORIDE LEVEL 106 MMOL/L (98-107); CHOLESTEROL LEVEL 223 MG/DL (<200); CHOLESTEROL RISK RATIO 5.22 (<5); CREATININE FOR GFR 0.91 MG/DL (0.70-1.30); GLOMERULAR FILTRATION RATE > 60.0 (>56); GLUCOSE, FASTING 94 MG/DL (60-100); HDL CHOLESTEROL 42.7 MG/DL (>40); LDL CHOLESTEROL 104.7 MG/DL (<100); NON-HDL-C 180.3 MG/DL; POTASSIUM SERUM 3.6 MMOL/L (3.5-5.1); SODIUM LEVEL 141 MMOL/L (136-145); TOTAL PROTEIN 7.1 G/DL (5.7-8.2); TRIGLYCERIDES LEVEL 378 MG/DL (<150)
== END ==
LOC: M LAB 10:29
PROVIDERS: ATTEND Nurse Practitioner Family
DX: E78.2 Mixed hyperlipidemia (principal)

== ENCOUNTER 2023-12-24 06:21 | Day surgery (SDC) | payer OTHER ==
[~2023-12-24] VITALS: Ht 182.9 cm; Wt 118.4 kg
[~2023-12-24 06:21] MED LIST changes: +NS 1,000 ML IV ONE
[2023-12-24] MEDS ORDERED: propofoL 200 MG/20 ML VIAL As Ordered ONE (07:57)
[2023-12-24] MEDS ORDERED: LIDOCAINE 2% 100MG/5ML SDV (FOR ANES.) As Ordered ONE (07:57)
[2023-12-24 08:40] VITALS: BP 136/94; TEMP 97.2; O2SAT 98
== END 2023-12-24 08:55 | disposition home or self-care (01) ==
LOC: M OPP 06:21
PROVIDERS: ATTEND Surgery
DX: Z12.11 Encounter for screening for malignant neoplasm of colon (principal); Z86.010 Personal history of colon polyps; D12.0 Benign neoplasm of cecum; K64.0 First degree hemorrhoids; K57.30 Diverticulosis of large intestine without perforation or abscess without bleeding; G47.30 Sleep apnea, unspecified; Z99.89 Dependence on other enabling machines and devices